=== PATIENT | male | born 1975 | race Caucasian/White ===

== ENCOUNTER 2022-05-28 11:42 | Emergency (ER) | payer OTHER ==
[~2022-05-28] VITALS: Ht 185.4 cm; Wt 99.3 kg
--- NOTE | 2022-05-28 12:13 | ED General ---
General Chief Complaint: Allergic Reaction Stated Complaint: ALLERGIES Nursing Triage Note: arrives today to [facility] c/o increased allergic reaction symptoms of scratchy eyes and sinus drainage. patient currently takes clairitin and flonase at home and states he occasionally requires a steroid injection to help with his symptoms. Source of Information: Patient Exam Limitations: No Limitations History of Present Illness Date Seen by Provider: May 28, 2022 Time Seen by Provider: 12:00 Initial Comments This 46-year-old gentleman presents to the emergency room with complaints of severe exacerbation of seasonal eye allergies. He is already taking Flonase and long-acting antihistamine, but he has had severely itchy eyes despite those measures. He reports the wait field behind his house was cut recently which seem to exacerbate the problem. In the past he has received injections of Decadron 8 mg and Depo-Medrol 80 mg which has successfully eliminated the symptoms and previous allergy seasons. He is requesting injection again today. Allergies and Home Medications Allergies Coded Allergies: No Known Drug Allergies (Unverified , 05/28/22) Patient Home Medication List Home Medication List Reviewed: Yes Review of Systems Review of Systems Constitutional: no symptoms reported EENTM: see HPI Immunological/Allergic: see HPI Past Cwsclhk-Gjlonq-Yjnhbo Hx Patient Social History Tobacco Use?: No Use of E-Cig and/or Vaping dev: No Substance use?: No Alcohol Use?: Yes Alcohol type: Beer Alcohol Frequency: Once in a while Pt feels they are or have been: No Immunizations Up To Date First/Initial COVID19 Vaccinat: 2020 Second COVID19 Vaccination Guzman: 2020 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: [employer] Past Medical History Surgery/Hospitalization HX: seasonal allergies, ptsd, depression and anxiety Surgeries: Yes (pectus excavatum correction) Valve Replacement (Valve surgery as an ) Respiratory: No Cardiac: No Valvular Heart Disease Neurological: No Reproductive Disorders: No Genitourinary: No Gastrointestinal: No Musculoskeletal: No Endocrine: No HEENT: No Cancer: No Psychosocial: Yes Anxiety, PTSD, Depression Integumentary: No Physical Exam Vital Signs Vital Signs - First Documented 05/28/22 11:50 Temp 36.6 Pulse 83 Resp 18 B/P (MAP) 141/94 (110) Pulse Ox 99 O2 Delivery Room Air Capillary Refill : Less Than 3 Seconds Height, Weight, BMI Height: '" Weight: lbs. oz. kg; 28.00 BMI Method: General Appearance: No Apparent Distress, WD/WN HEENT: PERRL/EOMI, Pharynx Normal, Other (Eyelids and periorbital region slightly edematous. Conjunctiva slightly inflamed.) Neck: Normal Inspection Respiratory: Lungs Clear, Normal Breath Sounds, No Accessory Muscle Use Cardiovascular: Regular Rate, Rhythm, No Edema, No Gallop Extremity: Normal Inspection Neurologic/Psychiatric: Alert, Oriented x3, No Motor/Sensory Deficits, Normal Mood/Affect Skin: Normal Color, Warm/Dry Progress/Results/Core Measures Suspected Sepsis SIRS Temperature: Pulse: 83 Respiratory Rate: 18 Blood Pressure 141 /94 Mean: 110 Results/Orders My Orders Orders - AFSIHN ABDI MD Methylprednisolone Acetate Inj (Depo-Med (05/28/22 12:15) Dexamethasone Injection (Decadron Inje (05/28/22 12:15) Medications Given in ED Current Medications Medications Dose Ordered Sig/Allegra Route Start Time Stop Time Status Last Admin Dose Admin Dexamethasone Sodium Phosphate 8 mg ONCE ONCE IM 05/28/22 12:15 05/28/22 12:16 DC 05/28/22 12:27 8 MG Methylprednisolone Acetate 80 mg ONCE ONCE IM 05/28/22 12:15 05/28/22 12:16 DC 05/28/22 12:27 80 MG Vital Signs/I&O 05/28/22 05/28/22 11:50 12:45 Temp 36.6 36.7 Pulse 83 87 Resp 18 19 B/P (MAP) 141/94 (110) 128/84 Pulse Ox 99 99 O2 Delivery Room Air Capillary Refill : Less Than 3 Seconds Blood Pressure Mean: 110 Progress Note : Progress Note Patient requested his preferred injection therapy of "8 and 80" consisting of 8 mg of dexamethasone and 80 mg of Depo-Medrol. Injection was provided. See discharge instructions. Departure Impression Primary Impression: Allergic conjunctivitis Qualified Codes: H10.13 - Acute atopic conjunctivitis, bilateral Additional Impression: Seasonal allergies Disposition: 01 HOME, SELF-CARE Condition: Stable Departure-Patient Inst. Referrals: NO,LOCAL PHYSICIAN (PCP/Family) Primary Care Physician Patient Instructions: Seasonal Allergies ED Add. Discharge Instructions: You may continue using a long-acting antihistamine such as Claritin (loratadine ). You may continue using nasal steroid sprays as well. You may also use [id number] long-acting antihistamine eyedrops such as Pataday or Patanol (olopatadine). Follow-up with your primary care provider if not improving as expected. All discharge instructions reviewed with patient and/or family. Voiced understanding. AFSHIN ABDI MD May 28, 2022 12:13
[2022-05-28] MEDS ORDERED: methylPREDNISolone 80 MG/ML (DEPO MEDROL) VIAL IM ONE (12:15)
[2022-05-28 12:45] VITALS: BP 128/84
== END 2022-05-28 12:45 | disposition home or self-care (01) ==
LOC: ER 11:45
DX: H10.13 Acute atopic conjunctivitis, bilateral (principal); J30.2 Other seasonal allergic rhinitis
CPT/HCPCS: 99284